=== PATIENT | female | born 1975 | race Caucasian/White ===

== ENCOUNTER → 2016-07-16 | Outpatient (CLI) | payer OTHER ==
--- NOTE | 2016-07-16 18:00 | DX ---
DEXA Bone Mineral Densitometry Clinical Indications: Post oophorectomy and hysterectomy, family history of osteoporosis, history of irregular menstrual periods, screening for osteoporosis Comparison: April 15, 2010 (normal) Technique: Bone Mineral Densitometry (BMD) by Dual Energy X-Ray Absorptiometry (DEXA) was performed utilizing the CommScope scanner. The lumbar spine was evaluated in the AP projection. The bilat eral hips and forearm were evaluated in the AP projection. Vertebral fracture assessment was also pe rformed. AP Lumbar Spine: The L1, L2, L3 and L4 vertebral bodies were evaluated. BMD: 1.211 gm/cm2 T-score: 0.1 SD Z-score: 0.3 SD No significant change. AP Left Hip: Neck BMD: 0.882 gm/cm2 T-score: -1.1 SD Z-score: -0.5 SD No significant change in total BMD AP Right Hip: Neck BMD: 0.816 gm/cm2 T-score: -1.6 SD Z-score: -1.0 SD No significant change in total BMD AP Left Forearm, 06/24: BMD: 0.838 gm/cm2 T-score: -0.4 SD Z-score: -0.4 SD No significant change Vertebral Fracture Assessment: No significant fracture deformity. No prevertebral aortic calcificati on, significant marginal bone spurring, facet arthrosis, or intrinsic vertebral body sclerosis that would effect the accuracy of the lumbar spine BMD measurement. Conclusion: Considering the lowest measured site, the patient has low bone density. The ten year FRAX risk for any major osteoporotic fracture is 2.5% and for a hip fracture is 0.3%. Any bone loss in this patient is probably related to genetic testing the or estrogen deficiency. To prevent osteoporosis and to promote the patient's bone density, the following recommendations shou ld be considered: 1. Pursue a regular regimen of weightbearing and muscle strengthening exercises in order to reduce t he risk of falls and fractures (as tolerated by the patient's general medical condition). 2. Ensure that daily dietary calcium uptake is maximized. 3. Consider checking the serum vitamin D level. Ensure that intake of vitamin D is 600 IU per day (fo r all ages through 70) . 4. Consider follow-up DEXA scan [id number] to assess the rate of bone loss in this patient.
== END ==
LOC: FIMAGING 14:49
PROVIDERS: ATTEND Emergency Medicine
DX: Z13.820 Encounter for screening for osteoporosis (principal); M85.80 Other specified disorders of bone density and structure, unspecified site; N92.6 Irregular menstruation, unspecified; Z82.62 Family history of osteoporosis; Z90.710 Acquired absence of both cervix and uterus; Z90.722 Acquired absence of ovaries, bilateral

== ENCOUNTER → 2018-09-22 | Outpatient (CLI) | payer OTHER | LOC: BMCIMAGING 11:14 | PROVIDERS: ATTEND Internal Medicine | DX: J98.4 Other disorders of lung (principal) ==